=== PATIENT | female | born 1965 | race Caucasian/White ===

== ENCOUNTER → 2017-04-22 | Outpatient (CLI) | payer OTHER ==
[~2017-04-22] MED LIST: ASPIRIN 81MG TA81 MG PO; ATENOLOL100 MG PO; CENTRUM SILVER1 TAB PO; CIPRO 500MG TA500 MG PO; LEVOTHROID0.125 MG PO; MAXZIDE 25 MG-31 TAB PO; OMEPRAZOLE20 MG PO; SIMVASTATIN40 MG PO
[2017-04-22 09:02] LABS: HEMOGLOBIN 14.4 g/dL (12.2-16.2); LYMPH # 1.8 K/mm3 (0.7-4.5); LYMPH % 24.7 % (10-50.0)
[2017-04-22 10:12] LABS: BUN 17 mg/dL (7-18)
[2017-04-22 10:16] LABS: GFR (ESTIMATED) 66 ML/MIN (59-)
[2017-04-24 08:36] LABS: Vitamin D, 25-Hydroxy 36.2 ng/mL (30.0-100.0)
== END ==
LOC: LAB 08:43
PROVIDERS: Internal Medicine Adolescent Medicine
DX: E78.5 Hyperlipidemia, unspecified (principal); E53.8 Deficiency of other specified B group vitamins; E55.9 Vitamin D deficiency, unspecified